=== PATIENT | female | born 1995 | race Hispanic/Latino ===

== ENCOUNTER 2019-03-15 12:44 | Emergency (ER) | payer MEDICAID ==
--- NOTE | 2019-03-15 13:12 | Event Note ---
ED Screening Note Date of service: 03/15/19 Time: 13:12 ED Screening Note: 24 yo F, hx asthma and seizures, presents to the ED w/ mid abdominal pain, diarrhea x 3 days. Reports fever and chills. Denies N/V, cough. Denies sick contacts. Pt currently at [facility] for "anger problems." This initial assessment/diagnostic orders/clinical plan/treatment(s) is/are subject to change based on patients health status, clinical progression and re- assessment by fellow clinical providers in the ED. Further treatment and workup at subsequent clinical providers discretion. Patient/guardian urged not to elope from the ED as their condition may be serious if not clinically assessed and managed. Initial orders include: labs
[2019-03-15 14:14] LABS: Hematocrit 40.4 % (30.3-42.9); Hemoglobin 14.3 gm/dl (10.1-14.3); Mean Corpuscular HGB Conc 36 % (30-34); Mean Corpuscular Volume 86 fl (79-97); Platelet Count 288 K/mm3 (140-440); Red Blood Count 4.68 M/mm3 (3.65-5.03); Red Cell Distribution Width 13.6 % (13.2-15.2)
[2019-03-15 14:39] LABS: Alanine Aminotransferase 32 units/L (7-56); Albumin 4.2 g/dL (3.9-5); BUN/Creatinine Ratio 17; Blood Urea Nitrogen 10 mg/dL (7-17); Calcium 9.4 mg/dL (8.4-10.2); Hemolysis Index 22
[2019-03-15 15:55] LABS: Bilirubin,Urine NEG (Negative); Blood,Urine NEG (Negative); Color,Urine Yellow (Yellow); Mucus,Urine 1+ /HPF; Protein,Urine <15 mg/dL mg/dL (Negative); Urobilinogen,Urine < 2.0 mg/dL (<2.0)
[2019-03-15 16:08] LABS: Band Neutrophils # (Manual) 0.1 K/mm3; Basophils % (Manual) 0 % (0.0-1.8); Eosinophils % (Manual) 0 % (0.0-4.3); RBC Morphology Normal; Total Cells Counted 100
[2019-03-15 16:09] LABS: Platelet Estimate Consistent w Auto
[2019-03-15 16:28] VITALS: BP 142/98
--- NOTE | 2019-03-15 16:33 | Emergency Department Report ---
ED N/V/D HPI - General Chief complaint: Nausea/Vomiting/Diarrhea Stated complaint: DIARRHEA Source: patient Mode of arrival: Ambulatory Limitations: No Limitations - History of Present Illness Initial comments: 24-year-old female complaining of diarrhea along with abdominal cramping off and on 3 days she states that she has loose stools about 7 per day. She denies any vomiting fever or chills. Patient denies any drug or alcohol use she does not smoke cigarettes. She has a past medical history of seizure disorder and asthma. She denies, cough, Chest pain, shortness of breath and no recent seizure activities. Patient denies any known sick contacts. MD complaint: diarrhea -: days(s) (3) Associated Abdominal Pain: Yes (cramping with diarrhea currently no pain) Pain Scale: 0 Improves with: none Worsens with: none Associated Symptoms: denies other symptoms - Related Data Previous Rx's Medication Instructions Recorded Last Taken Type Sulfamethoxazole/Trimethoprim 1 each PO BID 3 Days #6 tablet 03/15/19 Unknown Rx [Bactrim DS TAB] Allergies Allergy/AdvReac Type Severity Reaction Status Date / Time No Known Allergies Allergy Verified 03/15/19 12:51 ED Review of Systems ROS: Stated complaint: DIARRHEA Other details as noted in HPI Comment: All other systems reviewed and negative Constitutional: denies: chills, fever ENT: denies: throat pain Respiratory: denies: cough, shortness of breath Cardiovascular: denies: chest pain Endocrine: denies: excessive sweating Gastrointestinal: diarrhea. denies: nausea, vomiting, constipation, hematochezia Genitourinary: denies: dysuria, hematuria Musculoskeletal: denies: back pain, arthralgia Neurological: denies: headache Psychiatric: denies: anxiety, depression ED Past Medical Hx - Past Medical History Previous Medical History?: Yes Hx Seizures: Yes Hx Asthma: Yes - Surgical History Past Surgical History?: No - Social History Smoking Status: Never Smoker Substance Use Type: None - Medications Home Medications: Home Medications Medication Instructions Recorded Confirmed Last Taken Type Sulfamethoxazole/Trimethoprim 1 each PO BID 3 Days #6 tablet 03/15/19 Unknown Rx [Bactrim DS TAB] ED Physical Exam - General Limitations: No Limitations General appearance: alert, in no apparent distress - Head Head exam: Absent: atraumatic - Eye Eye exam: Present: normal appearance. Absent: conjunctival injection - ENT ENT exam: Present: normal exam, mucous membranes moist - Neck Neck exam: Present: normal inspection - Respiratory Respiratory exam: Present: normal lung sounds bilaterally. Absent: respiratory distress, wheezes, rales, rhonchi, stridor - Cardiovascular Cardiovascular Exam: Present: regular rate, normal heart sounds - GI/Abdominal GI/Abdominal exam: Present: soft, normal bowel sounds. Absent: distended, tenderness, guarding, rebound, rigid - Extremities Exam Extremities exam: Present: normal inspection - Back Exam Back exam: Present: normal inspection. Absent: CVA tenderness (R), CVA ten derness (L) - Neurological Exam Neurological exam: Present: alert, oriented X3 - Psychiatric Psychiatric exam: Present: normal affect - Skin Skin exam: Present: warm, dry, intact, normal color. Absent: rash ED Course Vital Signs 03/15/19 03/15/19 13:08 16:26 Temperature 98.2 F 97.6 F Pulse Rate 102 H 106 H Respiratory 16 18 Rate Blood Pressure 138/94 Blood Pressure 138/94 142/98 [Left] O2 Sat by Pulse 96 Oximetry ED Medical Decision Making - Lab Data Result diagrams: 03/15/19 13:29 03/15/19 13:29 - Medical Decision Making 24-year-old female with diarrhea 3 days no fever no chills no vomiting. CBC with a normal white count and lipase within normal limits CMP no acute findings. urine slightly elevated white count (7) 1+ mucus. We will treat for UTI. Diarrhea will treat with Brat diet and stay hydrated and follow-up with PCP. Patient is well-appearing in no distress and is safe to discharge with outpatient follow-up with her PCP or [facility] or Dr. Julio. Critical Care Time: No Critical care attestation.: If time is entered above; I have spent that time in minutes in the direct care of this critically ill patient, excluding procedure time. ED Disposition Clinical Impression: Diarrhea Qualifiers: Diarrhea type: unspecified type Qualified Code(s): R19.7 - Diarrhea, unspecified UTI (urinary tract infection) Qualifiers: Urinary tract infection type: acute cystitis Hematuria presence: without hematuria Qualified Code(s): N30.00 - Acute cystitis without hematuria Disposition: TO HOME OR SELFCARE Is pt being admited?: No Does the pt Need Aspirin: No Condition: Stable Instructions: Acute Diarrhea (ED), Urinary Tract Infection in Women (ED) Additional Instructions: Continue with clear liquids increasing her water intake to 6-8 glasses of water daily discontinue dairy products until your diarrhea stops. Eat bananas and apples,rice, drink tea without milk. Follow up with her primary care doctor at [facility] or Dr. Julio in about 3-5 days. Return to the emergency room for any worsening symptoms such as increasing abdominal pain fever and worsening diarrhea Prescriptions: Sulfamethoxazole/Trimethoprim [Bactrim DS TAB] 1 each PO BID 3 Days #6 tablet Referrals: PRIMARY CAREMD [Primary Care Provider] - 3-5 Days KRISTOFER JULIO MD [Staff Physician] - 3-5 Days Time of Disposition: 16:44
== END 2019-03-15 17:11 | disposition home or self-care (01) ==
LOC: ED 12:44
DX: R19.7 Diarrhea, unspecified (principal); N30.00 Acute cystitis without hematuria; G40.909 Epilepsy, unspecified, not intractable, without status epilepticus; J45.909 Unspecified asthma, uncomplicated; Z79.899 Other long term (current) drug therapy
CPT/HCPCS: 36415; 80053; 81001; 83690; 84702; 85007; 85025; 99283